=== PATIENT | female | born 1955 | race Caucasian/White ===

== ENCOUNTER → 2017-08-22 | Outpatient (CLI) | payer BC ==
[~2017-08-22] MED LIST: BUPIVACAINE MPF 0.5% 30 ML VIAL. ONE; LIDOCAINE 1% PF 30 ML VIAL. ONE
== END | disposition home or self-care (01) ==
LOC: SURG 15:31
PROVIDERS: ATTEND Anesthesiology Pain Medicine
DX: M47.812 Spondylosis without myelopathy or radiculopathy, cervical region (principal); J45.909 Unspecified asthma, uncomplicated; Z87.01 Personal history of pneumonia (recurrent); F17.210 Nicotine dependence, cigarettes, uncomplicated; Z72.89 Other problems related to lifestyle; M19.90 Unspecified osteoarthritis, unspecified site; Z91.041 Radiographic dye allergy status
CPT/HCPCS: 64490; 64491; 64492; J2001; J3490

== ENCOUNTER → 2019-09-26 | Outpatient (CLI) | payer BC ==
[~2019-09-26] MED LIST changes: -BUPIVACAINE MPF 0.5% 30 ML VIAL. ONE; +CARB200T PO; +ESCITALOPRAM OX20 MG PO; +ESTR2TAB PO; +HYDR-2765 PO; +IRBE150T21 PO; +LEVO125T5 PO; -LIDOCAINE 1% PF 30 ML VIAL. ONE; +MONT10TA80 PO; +OMEP40CA45 PO; +PLEC3TAB PO; +TOPI100T42 PO; +TRAZ-125 PO
== END | disposition home or self-care (01) ==
LOC: LAB 13:55
PROVIDERS: ATTEND Registered Nurse
DX: Z11.59 Encounter for screening for other viral diseases (principal)
CPT/HCPCS: C9803; U0003

== ENCOUNTER → 2019-09-30 | Day surgery (SDC) | payer BC ==
[~2019-09-30] MED LIST changes: +IPRATRPIUM/ALBUTEROL 0.5/2.5MG 3 ML NEBU. NEB PRN; +IV RINGERS SOLUTION,LACTATED 1,000 ML IV SCH; +PROPOFOL 10,000 MCG/ML (20ML) VIAL IV ONE
[2019-09-30 08:41] VITALS: BP 153/80
--- NOTE | 2019-10-01 14:09 | PATHOLOGY ---
[facility] Accession Number: [id number] . 01 Material submitted: . PART A: stomach - GASTRIC BX PART B: esophagus - DISTAL ESOPHAGUS. Modifiers: distal . 02 Diagnosis: A. Gastric biopsy: - Chronic gastritis, mild. . B. Esophageal biopsy, distal esophagus: - Segment of squamous esophageal mucosa showing no significant pathologic abnormalities. ([facility] 10/01/2019) [facility] 10/01/2019 0948 Local . 02 Comment: Sections of the gastric biopsy reveal gastric antral mucosa showing congestion and mild chronic inflammation. A properly controlled immunoperoxidase for Helicobacter is negative for Helicobacter organisms. . Sections of the distal esophageal biopsy reveal a segment of squamous esophageal mucosa showing no significant pathologic abnormalities. There is no evidence of Asher's change, dysplasia or malignancy. ([facility] 10/01/2019) . Special stain performed: Immunoperoxidase for Helicobacter on A1. . 02 Electronically signed: . Mychal Armstrong MD, Pathologist NPI- [id number] . 01 Gross description: . A. The specimen is received in formalin labeled "Sahil, Ana, gastric biopsy" and consists of a fragment of pink-blakely tissue measuring 0.4 x 0.2 x 0.2 cm which is entirely submitted in A1. . B. The specimen is received in formalin labeled "Sahil, Ana, distal esophagus" and consists of a fragment of white tissue measuring 0.3 x 0.2 x 0.1 cm which is entirely submitted in B1. ([facility]; 09/30/2019) JFQ/JFQ 09/30/2019 1914 Local . 02 Pathologist provided ICD-10: K29.50 . 02 CPT . 694156, 126632, M17735 Specimen Comment: A courtesy copy of this report has been sent to [phone], [phone] Specimen Comment: [id number] Specimen Comment: Report sent to / DR BASURTO Performed at: [address], [place] [id number] MD Abel Lopez MD Phone: [phone] Performed at: 02 [facility] [address] [place], [place] [id number] MD Mychal Armstrong MD Phone: [phone]
== END ==
LOC: SURG 07:09
PROVIDERS: ATTEND Emergency Medicine
DX: K21.0 Gastro-esophageal reflux disease with esophagitis (principal); K29.50 Unspecified chronic gastritis without bleeding; I10 Essential (primary) hypertension; J45.909 Unspecified asthma, uncomplicated; F41.9 Anxiety disorder, unspecified; Z90.49 Acquired absence of other specified parts of digestive tract; Z90.710 Acquired absence of both cervix and uterus; Z98.890 Other specified postprocedural states
CPT/HCPCS: 43239; 88305; 88342; J2704; J7120; 45380

== ENCOUNTER 2021-06-24 13:40 | Emergency (ER) | payer MEDICARE, BC ==
[~2021-06-24] VITALS: Ht 162.6 cm; Wt 90.0 kg
[~2021-06-24 13:40] MED LIST changes: -ESTR2TAB PO; +ESTR2TAB3 PO; -IPRATRPIUM/ALBUTEROL 0.5/2.5MG 3 ML NEBU. NEB PRN; -IV RINGERS SOLUTION,LACTATED 1,000 ML IV SCH; -OMEP40CA45 PO; +OMEP40CA7 PO; -PLEC3TAB PO; +PLEC3TAB2 PO; -PROPOFOL 10,000 MCG/ML (20ML) VIAL IV ONE
[2021-06-24] MEDS ORDERED: IV NORMAL SALINE 1,000ML 1,000 ML IV SCH (14:30)
--- NOTE | 2021-06-24 14:53 | RAD ---
Exam Date: 06/24/2021 2:[address] HEAD/BRAIN WO Indication: Reason: fall, / Spl. Instructions: / History: . TECHNIQUE: Head CT was performed without intravenous contrast. One or more of the following dose re duction techniques were utilized: *Automated exposure control (AEC) *Adjustment of mA and/or kV according to patient size *Use of iterative reconstruction technique *CT scan done according to ALARA, or ALARA/IMAGE GENTLY FINDINGS: The ventricles and sulci are prominent consistent with cerebral volume loss. Patchy ill-defined low attenuation areas in the subcortical and periventricular white matter bilaterally are consistent with microvascular disease. There is no evidence of acute intracranial hemorrhage, extra-axial collecti on, mass effect, midline shift, or acute territorial infarct. No lesion of the skull base or the calv arium is seen. The visualized paranasal sinuses, mastoid air cells and orbits are normal in appearanc e. IMPRESSION: No evidence for acute intracranial abnormality. Volume loss and microvascular disease. Electronically signed by: Jordi Epps MD (06/24/2021 2:50 PM) [facility]
[2021-06-24 15:10] LABS: BASO % 1 % (0-3); EOS # 0.2 x10^3/uL (0.0-0.7); EOS % 4 % (0-3); HEMATOCRIT 37.7 % (36.0-47.0); HEMOGLOBIN 12.4 g/dL (12.0-15.5); LYMPH # 1.2 x10^3/uL (1.0-4.8); LYMPH % 22 % (24-48); MEAN CORPUSCULAR HEMOGLOBIN 30 pg (25-35); MEAN CORPUSCULAR HGB CONC 33 g/dL (31-37); MEAN CORPUSCULAR VOLUME 91 fL (79-100); MONO # 0.7 x10^3/uL (0.0-1.1); MONO % 12 % (0-9); NEUT # 3.4 x10^3uL (1.8-7.7); NEUT % 61 % (31-73); PLATELET COUNT 287 x10^3/uL (140-400); RED BLOOD COUNT 4.14 x10^6/uL (3.50-5.40); RED CELL DISTRIBUTION WIDTH 14.9 % (11.5-14.5); WHITE BLOOD COUNT 5.5 x10^3/uL (4.0-11.0)
--- NOTE | 2021-06-24 15:20 | RAD ---
Exam Date: 06/24/2021 2:45 PM XR CHEST 1V Indication: Reason: weakness, tremnors / Spl. Instructions: / History: . Comparison: May 18, 2015 FINDINGS/ IMPRESSION: The cardiac silhouette and pulmonary vasculature are within normal limits. There is no focal consolidation, pleural effusion or pneumothorax. The visualized osseous structures are intact. Electronically signed by: Jordi Epps MD (06/24/2021 3:18 PM) [facility]
[2021-06-24 15:21] LABS: CALCIUM 8.6 mg/dL (8.5-10.1); CREATININE 0.8 mg/dL (0.6-1.0)
[2021-06-24 15:34] LABS: ALBUMIN/GLOBULIN RATIO 0.9 (1.0-1.7); MAGNESIUM 1.9 mg/dL (1.8-2.4); TOTAL BILIRUBIN 0.1 mg/dL (0.2-1.0); TOTAL PROTEIN 6.2 g/dL (6.4-8.2)
[2021-06-24 16:09] LABS: AMPHETAMINE/METHAMPHETAMINE NEG (NEG); BARBITURATES NEG (NEG); BENZODIAZEPINES NEG (NEG); CANNABINOIDS NEG (NEG); COCAINE NEG (NEG); METHADONE NEG (NEG); OPIATES POS (NEG); PHENCYCLIDINE NEG (NEG)
[2021-06-24 16:15] LABS: CLARITY,URINE HAZY; COLOR,URINE AMBER; GLUCOSE,URINE 100 mg/dL (NEG)
[2021-06-24 16:16] LABS: BACTERIA,URINE 0 /HPF (0-FEW); NITRITE,URINE NEG (NEG); RBC,URINE 0 /HPF (0-2); SQUAMOUS EPITHELIAL CELL,UR MOD /LPF; UROBILINOGEN,URINE 0.2 mg/dL (0.2 mg/dL); WBC,URINE 0 /HPF (0-4)
--- NOTE | 2021-06-24 16:39 | PHYS DOC ---
Past History Additional Past Medical Histor: epilepsy, back pain, Past Surgical History: Hysterectomy, Other Additional Past Surgical Histo: spinal stimulator Alcohol Use: None General Adult EDM: Chief Complaint: MECHANICAL FALL HPI: HPI: 66-year-old female past medical history of seizures, hypertension, benign essential tremors and hypothyroidism, presents to the ED with complaints of " my knees just gave out when I was walking." Reports she was unable to get up after falling and her could not lift her; I am alone. States she did land on her right side and hit the right side of her head but did not lose consciousness. Is not on any anticoagulants. Reports primary care physician started on Keflex 1 week ago for pneumonia. Recently discontinued her estrogen. Reports her tetanus is up-to-date. Denies any associated chest pain, shortness of breath hemoptysis, leg swelling, dizziness, oral, lightheadedness or any other presenting symptoms. Patient states "my knees just buckled, it was not a seizure." Follows with Dr. Mcnair for chronic bilateral knee pain and received steroid injections-states "I just need new knees." Review of Systems: Review of Systems: Constitutional: Denies fever or chills Eyes: Denies change in visual acuity HENT: Denies nasal congestion or sore throat Respiratory: Denies cough or shortness of breath Cardiovascular: Denies chest pain or edema GI: Denies abdominal pain, nausea, vomiting, bloody stools or diarrhea : Denies cyanoses or incontinence Musculoskeletal: Denies back pain or new joint pain Integument: Denies rash or diaphoresis Neurologic: Denies headache or neck pain Endocrine: Denies polyuria or polydipsia Lymphatic: Denies swollen glands Psychiatric: Denies depression or anxiety Current Medications: Current Meds: Current Medications Medications (Trade) Dose Ordered Sig/Ayleen Start Time Stop Time Status Last Admin Dose Admin Sodium Chloride 1,000 ml @ 1,000 mls/hr Q1H 06/24/21 14:30 06/24/21 15:29 DC 06/24/21 15:40 1,000 MLS/HR Allergies: Allergies: Allergies Coded Allergies Type Severity Reaction Last Updated Verified rizatriptan Allergy Unknown 09/30/19 Yes Uncoded Allergies Type Severity Reaction Last Updated Verified SURGICAL PREP Allergy Unknown 09/25/19 Physical Exam: PE: Constitutional: Well developed, well nourished, no acute distress, non-toxic appearance. HENT: Normocephalic, atraumatic, cannot appreciate any hematoma or skin break, slightly dry mucous membranes Eyes: Pupils equal and reactive, EOMI, conjunctiva normal, no discharge. Neck: Normal range of motion, supple, the patient presented to the emergency department with a c-collar in place, Nexus C-spine criteria are negative: There is no post midline tenderness, the patient is not intoxicated, there is a normal level of alertness, there are no focal neurologic deficits and there are no distracting injuries. Cardiovascular: S1/2 present, regular rhythm Lungs & Thorax: Speaking in full sentences, bilateral equal chest rise, no tachypnea or increased work of breathing Abdomen: soft, no tenderness, no hip tenderness, Skin: Warm, dry, no erythema, no rash. [] Back: No midline spinal step-offs or tenderness, no CVA tenderness. [] Extremities: No tenderness, no cyanosis, no unilateral, lower extremity edema, is able to raise both legs, very superficial abrasion to right anterior knee- normal range of motion of hips, knees and ankles, no pain at fibular heads, DP/PT pulses intact, L5/S1 sensation intact Neurologic: Alert and oriented X 3, normal motor function, normal sensory function, no focal deficits noted. [] Psychologic: Affect normal, judgement normal, mood normal. [] Current Patient Data: Labs: Laboratory Tests Test 06/24/21 14:56 06/24/21 15:36 White Blood Count 5.5 x10^3/uL (4.0-11.0) Red Blood Count 4.14 x10^6/uL (3.50-5.40) Hemoglobin 12.4 g/dL (12.0-15.5) Hematocrit 37.7 % (36.0-47.0) Mean Corpuscular Volume 91 fL (79-100) Mean Corpuscular Hemoglobin 30 pg (25-35) Mean Corpuscular Hemoglobin Concent 33 g/dL (31-37) Red Cell Distribution Width 14.9 % (11.5-14.5) H Platelet Count 287 x10^3/uL (140-400) Neutrophils (%) (Auto) 61 % (31-73) Lymphocytes (%) (Auto) 22 % (24-48) L Monocytes (%) (Auto) 12 % (0-9) H Eosinophils (%) (Auto) 4 % (0-3) H Basophils (%) (Auto) 1 % (0-3) Neutrophils # (Auto) 3.4 x10^3uL (1.8-7.7) Lymphocytes # (Auto) 1.2 x10^3/uL (1.0-4.8) Monocytes # (Auto) 0.7 x10^3/uL (0.0-1.1) Eosinophils # (Auto) 0.2 x10^3/uL (0.0-0.7) Basophils # (Auto) 0.0 x10^3/uL (0.0-0.2) Sodium Level 143 mmol/L (136-145) Potassium Level 4.0 mmol/L (3.5-5.1) Chloride Level 106 mmol/L (98-107) Carbon Dioxide Level 30 mmol/L (21-32) Anion Gap 7 (6-14) Blood Urea Nitrogen 19 mg/dL (7-20) Creatinine 0.8 mg/dL (0.6-1.0) Estimated GFR (Cockcroft-Gault) 72.0 BUN/Creatinine Ratio 24 (6-20) H Glucose Level 92 mg/dL (70-99) Calcium Level 8.6 mg/dL (8.5-10.1) Magnesium Level 1.9 mg/dL (1.8-2.4) Total Bilirubin 0.1 mg/dL (0.2-1.0) L Aspartate Amino Transferase (AST) 20 U/L (15-37) Alanine Aminotransferase (ALT) 20 U/L (14-59) Alkaline Phosphatase 134 U/L (46-116) H Creatine Kinase 65 U/L (26-192) Troponin I High Sensitivity 7 ng/L (4-50) LB-Ikv-V-Type Natriuretic Peptide 307 pg/mL (0-124) H Total Protein 6.2 g/dL (6.4-8.2) L Albumin 3.0 g/dL (3.4-5.0) L Albumin/Globulin Ratio 0.9 (1.0-1.7) L Lipase 45 U/L (73-393) L Urine Collection Type Clean catch Urine Color Ignacia Urine Clarity Hazy Urine pH 5.5 Urine Specific Farrell >=1.030 Urine Protein Neg (NEG-TRACE) Urine Glucose (UA) 100 mg/dL (NEG) Urine Ketones (Stick) Trace mg/dL (NEG) Urine Blood Neg (NEG) Urine Nitrite Neg (NEG) Urine Bilirubin Small (NEG) Urine Urobilinogen Dipstick 0.2 mg/dL (0.2 mg/dL) Urine Leukocyte Esterase Neg (NEG) Urine RBC 0 /HPF (0-2) Urine WBC 0 /HPF (0-4) Urine Squamous Epithelial Cells Mod /LPF Urine Bacteria 0 /HPF (0-FEW) Urine Opiates Screen Pos (NEG) Urine Methadone Screen Neg (NEG) Urine Barbiturates Neg (NEG) Urine Phencyclidine Screen Neg (NEG) Urine Amphetamine/Methamphetamine Neg (NEG) Urine Benzodiazepines Screen Neg (NEG) Urine Cocaine Screen Neg (NEG) Urine Cannabinoids Screen Neg (NEG) Urine Ethyl Alcohol Neg (NEG) Vital Signs: Vital Signs Date Time Temp Pulse Resp B/P (MAP) Pulse Ox O2 Delivery O2 Flow Rate FiO2 06/24/21 13:59 97.9 67 16 155/82 (106) 96 Room Air EKG: EKG: [] Radiology/Procedures: Radiology/Procedures: IMAGING REPORT Signed PATIENT: JOHANNA YUNG ACCOUNT: [id number] : 1955 LOCATION: ER AGE: 66 SEX: F EXAM STATUS: REG ER ORD. PHYSICIAN: SIERRA MELO DO REASON: fall, PROCEDURE: CT HEAD WO CONTRAST Exam Date: 06/24/2021 2:[address] HEAD/BRAIN WO Indication: Reason: fall, / Spl. Instructions: / History: . TECHNIQUE: Head CT was performed without intravenous contrast. One or more of the following dose reduction techniques were utilized: *Automated exposure control (AEC) *Adjustment of mA and/or kV according to patient size *Use of iterative reconstruction technique *CT scan done according to ALARA, or EVERETTERA/IMAGE GENTLY FINDINGS: The ventricles and sulci are prominent consistent with cerebral volume loss. Patchy ill-defined low attenuation areas in the subcortical and periventricular white matter bilaterally are consistent with microvascular disease. There is no evidence of acute intracranial hemorrhage, extra-axial collection, mass effect, midline shift, or acute territorial infarct. No lesion of the skull base or the calvarium is seen. The visualized paranasal sinuses, mastoid air cells and orbits are normal in appearance. IMPRESSION: No evidence for acute intracranial abnormality. Volume loss and microvascular disease. Electronically signed by: Rocio Epps MD (06/24/2021 2:50 PM) [facility] DICTATED AND SIGNED BY: ROCIO EPPS MD DATE: 06/24/21 1447 CC: SIERRA BASURTO; SIERRA MELO DO ~MTH0 0 IMAGING REPORT Signed PATIENT: JOHANNA YUNG ACCOUNT: [id number] : 1955 LOCATION: ER AGE: 66 SEX: F EXAM STATUS: REG ER ORD. PHYSICIAN: SIERRA MELO DO REASON: weakness, tremnors PROCEDURE: PORTABLE CHEST 1V Exam Date: 06/24/2021 2:45 PM XR CHEST 1V Indication: Reason: weakness, tremnors / Spl. Instructions: / History: . Comparison: May 18, 2015 FINDINGS/ IMPRESSION: The cardiac silhouette and pulmonary vasculature are within normal limits. There is no focal consolidation, pleural effusion or pneumothorax. The visualized osseous structures are intact. Electronically signed by: Rocio Epps MD (06/24/2021 3:18 PM) [facility] DICTATED AND SIGNED BY: ROCIO EPPS MD DATE: 06/24/21 1517 CC: SIERRA BASURTO; SIERRA MELO DO ~MTH0 0 Heart Score: C/O Chest Pain: No Risk Factors: Risk Factors: DM, Current or recent (<one month) smoker, HTN, HLP, family history of CAD, obesity. Risk Scores: Score 0 - 3: 2.5% MACE over next 6 weeks - Discharge Home Score 4 - 6: 20.3% MACE over next 6 weeks - Admit for Clinical Observation Score 7 - 10: 72.7% MACE over next 6 weeks - Early Invasive Strategies Course & Med Decision Making: Course & Med Decision Making Pertinent Labs and Imaging studies reviewed. (See chart for details) Concern for accidental mechanical fall in an afebrile, slightly dehydrated F with mild ketonuria on urinalysis. Patient also has a benign essential tremors which I think could complicate this. Patient does not ambulate with any canes or walkers. Basic labs unremarkable with no evidence of ischemia on EKG, negative troponin. CT imaging of the head with no traumatic injury. Chest x- ray with no worsening pneumonia. Urinalysis with no UTI. Patient able to ambulate in emergency department. Reports knee pain is chronic and not acute- has no focal back pain and has orthopedic surgeon to follow-up with. I encouraged oral hydration. Will discharge home with strict ED return precautions were given for repeat head injury, fever, joint deformity or confusion. Encouraged urgent outpatient follow-up with PMD for routine care and with PCP as needed for quadrant pain. Life-threatening processes were considered but are low suspicion at this time, given history, physical exam and ED workup. Pt was educated on all prescription medications and adverse effects. All patient's questions were answered and pt was stable at time of discharge. Life/limb-threatening differential includes but is not limited to, intracranial hemorrhage, diffuse axonal injury, spinal cord syndrome, unstable cervical fracture or SCIWORA, fractures or joint dislocations, neurovascular injuries, organ injury or laceration, pneumothorax, pneumoperitoneum, pericardial tamponade, unstable pelvic fracture, compartment syndrome, flail chest or respiratory distress, burn injury or asphyxiation I have spoken with the patient and/or caregivers. I explained the patient's condition, diagnoses and treatment plan based on the information available to me at this time. I have answered the patient and/or caregiver's questions and addressed any concerns. The patient and/or caregivers have a good understanding of patient's diagnosis, condition and treatment plan as can be expected at this point. Vital signs have been stable. Patient's condition is stable and appropriate for discharge from the emergency department. Patient will pursue further outpatient evaluation with primary care physician or other designated or consulting physician as outlined in the discharge instructions. The patient and/or caregivers are agreeable to this plan of care and follow-up instructions have been explained in detail. The patient and/or caregivers have received these instructions in written form and have expressed an understanding of the discharge instructions. The patient and/or caregivers are aware that any significant change of condition or worsening of symptoms should prompt immediate return to this or the closest emergency department or call to 911. Inder Disclaimer: Inder Disclaimer: This electronic medical record was generated, in whole or in part, using a voice recognition dictation system. Departure Departure: Impression: Primary Impression: Weakness Additional Impressions: Fall Ketonuria Disposition: 01 HOME / SELF CARE / HOMELESS Condition: STABLE Referrals: CHIO CHAHAL MD (PCP) Follow-up with your primary care physician in the next few days for reevaluation. Return to ED if you develop any passing out, repeat head injury, severe headache, nausea or vomiting, or confusion. Patient Instructions: Dehydration, Adult, Fall Prevention and Home Safety, Weakness Additional Instructions: FOLLOW UP WITH ORTHOPEDICS: FOR DEFINITIVE MANAGEMENT of chronic joint pain Orthopaedic Surgery [address] [facility] [place] [address] EMERGENCY DEPARTMENT GENERAL DISCHARGE INSTRUCTIONS Thank you for coming to [facility] (ED) today and trusting us with you care. We trust that you had a positivie experience in our Emergency Department. If you wish to speak to the department management, you may call the director at [phone]. YOUR FOLLOW UP INSTRUCTIONS ARE FOLLOWS: 1. Do you have a private Doctor? If you do not have a private doctor, please ask for a resource list of physicians or clinics that may be able to assist you with follow up care. 2. The Emergency Physician has interpreted your x-rays. The X-Ray specialist will also review them. If there is a change in the findings, you will be notified in 48 hours when at all possible. 3. A lab test or culture has been done, your results will be reviewed and you will be notified if you need a change in treatment. ADDITIONAL INSTRUCTIONS AND INFORMATION: 1. Your care today has been supervised by a physician who is specially trained in emergency care. Many problems require more than one evaluation for a complete diagnosis and treatment. We recommend that you schedule your follow up appointment as recommended to ensure complete treatment of you illness or injury. If you are unable to obtain follow up care and continue to have a problem, or if your condition worsens, we recommend that you return to the ED. 2. We are not able to safely determine your condition over the phone nor are we able to give sound medical advice over the phone. For these safety reasons, if you call for medical advice we will ask you to come to the ED for further evaluation. 3. If you have any questions regarding these discharge instructions please call the ED at [phone]. SAFETY INFORMATION: In the interest of safety, wellness, and injury prevention; we encourage you to wear your sealbelt, if you smoke; quite smoking, and we encourage family to use a protective helmet for bicycling and other sporting events that present an increased risk for head injury. IF YOUR SYMPTOMS WORSEN OR NEW SYMPTOMS DEVELOP, OR YOU HAVE CONCERNS ABOUT YOUR CONDITION; OR IF YOUR CONDITION WORSENS WHILE YOU ARE WAITING FOR YOUR FOLLOW UP APPOINTMENT; EITHER CONTACT YOUR PRIMARY CARE DOCTOR, THE PHYSICIAN WHOSE NAME AND NUMBER YOU WERE GIVEN, OR RETURN TO THE ED IMMEDIATELY. [facility] DO Jun 24, 2021 16:39
[2021-06-24 17:15] VITALS: BP 158/81
--- NOTE | 2021-06-24 17:19 | EKG ---
[address] [address] Test Date: 2021-06-24 Test Time: 15:03:42 Pat Name: JOHANNA YUNG Department: Room: Gender: F Bench Scientist: : 1955 Requested By: SIERRA MELO Order Number: [id number] Reading MD: Fernando Chao Measurements Intervals Jermyn Rate: 58 P: 42 NM: 238 QRS: -15 QRSD: 94 T: 7 QT: 420 QTc: 416 Interpretive Statements SINUS RHYTHM PROLONGED NM INTERVAL Electronically Signed On 06-26-2021 18:01:05 VOIP NETWORK TECHNICIAN by Fernando Chao
== END 2021-06-24 18:26 | disposition home or self-care (01) ==
LOC: ER 13:40
DX: S80.211A Abrasion, right knee, initial encounter (principal); R53.1 Weakness; R82.4 Acetonuria; I10 Essential (primary) hypertension; G40.909 Epilepsy, unspecified, not intractable, without status epilepticus; E03.9 Hypothyroidism, unspecified; G89.29 Other chronic pain; Z88.8 Allergy status to other drugs, medicaments and biological substances; W18.39XA Other fall on same level, initial encounter; Y93.01 Activity, walking, marching and hiking; Y92.89 Other specified places as the place of occurrence of the external cause; Y99.8 Other external cause status
CPT/HCPCS: 36415; 70450; 71045; 80053; 80307; 81001; 82550; 83690; 83735; 83880; 84484; 85025; 93005; 96360; 99285; J7030

== ENCOUNTER 2021-08-11 10:12 | Emergency (ER) | payer MEDICARE, BC ==
[~2021-08-11] VITALS: Ht 162.6 cm; Wt 90.0 kg
[2021-08-11] MEDS ORDERED: KETOROLAC 30 MG/ML VIAL. IM ONE (11:00)
[2021-08-11] MEDS ORDERED: ORPHENADRINE CITRATE 60 MG/2 ML VIAL. IM ONE (11:00)
--- NOTE | 2021-08-11 11:04 | PHYS DOC ---
Past History Past Medical History: Seizure Additional Past Medical Histor: back pain Past Surgical History: Hysterectomy, Other Additional Past Surgical Histo: spinal stimulator, pain pump Alcohol Use: None General Adult EDM: Chief Complaint: HAND PROBLEM HPI: HPI: Patient is a 66 year old female who experiences chronic pain who presents with bilateral shoulder and upper extremity pain status post fall 2 weeks ago. She was evaluated at that time and medically cleared without any acute bony injuries. Patient also had x-rays performed of her shoulders at a separate date, which revealed severe arthritis. She presents today for evaluation of the pain extending from her bilateral shoulders down to her hands, worse than the left. She denies any new trauma or injury, paresthesias, focal weakness. Patient has a spinal stimulator as well as a pain pump, of which medication she is unsure. Patient has no other complaints at this time. Review of Systems: Review of Systems: Constitutional: Denies fever, chills or generalized weakness Eyes: Denies change in visual acuity, visual field deficits or discharge HENT: Denies ear pain, nasal congestion or sore throat Respiratory: Denies cough or shortness of breath Cardiovascular: Denies chest pain, palpitations or edema GI: Denies abdominal pain, nausea, vomiting, bloody stools or diarrhea : Denies dysuria or hematuria Musculoskeletal: See HPI Integument: Denies rash or other skin lesion Neurologic: Denies headache, focal weakness or sensory changes Current Medications: Current Meds: Current Medications Medications (Trade) Dose Ordered Sig/Ayleen Start Time Stop Time Status Last Admin Dose Admin Ketorolac Tromethamine (Toradol 30mg Vial) 30 mg 1X ONCE 08/11/21 11:00 08/11/21 11:01 UNV Allergies: Allergies: Allergies Coded Allergies Type Severity Reaction Last Updated Verified rizatriptan Allergy Unknown 09/30/19 Yes Uncoded Allergies Type Severity Reaction Last Updated Verified SURGICAL PREP Allergy Unknown 09/25/19 Physical Exam: PE: Constitutional: Well developed, well nourished, no acute distress, non-toxic appearance. HENT: Normocephalic, atraumatic, bilateral external ears normal, nose normal. Eyes: EOMI, conjunctiva normal, no discharge. Neck: Normal range of motion, no stridor. Skin: Warm, dry, no erythema, no rash. Back: No midline tenderness, no paraspinal tenderness. Extremities: No tenderness, no cyanosis, no clubbing, no edema, no obvious deformity. Active and passive ROM intactshoulder abduction/adduction/flexion/extension/internal rotation/external rotation, elbow flexion/extension, wrist circumduction. Neurologic: Alert and oriented x4, normal motor function, normal sensory function, no focal deficits noted. Current Patient Data: Vital Signs: Vital Signs Date Time Temp Pulse Resp B/P (MAP) Pulse Ox O2 Delivery O2 Flow Rate FiO2 08/11/21 11:35 68 16 129/93 (105) 98 08/11/21 10:29 98.4 64 16 139/97 (111) 98 Room Air Heart Score: C/O Chest Pain: No Course & Med Decision Making: Course & Med Decision Making Pertinent Labs and Imaging studies reviewed. (See chart for details) Patient is a 66-year-old female who presents with bilateral upper extremity pain that she reports began status post fall about 2 weeks ago. She has been evaluated multiple times since her initial injury without any acute findings. Today, she is seeking x-rays of her hands to evaluate for pain that may be related to carpal tunnel syndrome. Discussed with the patient that x-ray films are limited in evaluation, and can really only assess bony injury and sometimes soft tissue swelling. Patient understands that in order to obtain the kind of information and work-up that she seeks, she will need to see orthopedist and/or bioinformatics computer scientist. After her treatments here in the department, patient is comfortable following up with her primary care doctor for further evaluation and management. She does request prescription for something at home until she is able to see her doctor. I am amenable to this, and so sent norflex to her chosen pharmacy. Patient questions were answered. Return precautions were provided. Patient understands and is agreeable to discharge plan. Dragon Disclaimer: Dragon Disclaimer: This electronic medical record was generated, in whole or in part, using a voice recognition dictation system. Departure Departure: Impression: Primary Impression: Pain in both upper extremities Additional Impressions: Chronic back pain Qualified Codes: M54.9 - Dorsalgia, unspecified; G89.29 - Other chronic pain Elevated blood pressure reading Disposition: HOME / SELF CARE / HOMELESS Condition: IMPROVED Referrals: WELLINGTON ADKINS (PCP) TIFFANIE SANTOS Jr. DO Patient Instructions: Shoulder Exercises, Generic, SportsMed, Shoulder Pain, [id number]-[id number], Wrist Pain, Uwxc-vi-Pans Additional Instructions: Saman Kwok MD - Rheumatology [address], [address] [address] EMERGENCY DEPARTMENT GENERAL DISCHARGE INSTRUCTIONS Thank you for coming to [facility] (ED) today and trusting us with you care. We trust that you had a positive experience in our Emergency Department. If you wish to speak to the department management, you may call the director at [phone]. YOUR FOLLOW UP INSTRUCTIONS ARE FOLLOWS: 1. Follow up with your primary care doctor. Keep a blood pressure log for your next visit. If you do not have a primary doctor, please ask for a resource list of physicians or clinics that may be able to assist you with follow up care. 2. The emergency provider has interpreted your imaging studies, if any were ord ered. The radiology community service specialist also reviewed them. If there is a change in the findings, you will be notified in 48 hours when at all possible. 3. If a lab test or culture has been done, your results will be reviewed and you will be notified if you need a change in treatment. 4. Follow instructions verbalized to you and refer to the printouts if needed. ADDITIONAL INSTRUCTIONS AND INFORMATION: 1. Your care today has been supervised by a physician who is specially trained in emergency care. Many problems require more than one evaluation for a complete diagnosis and treatment. We recommend that you schedule your follow up appointment as recommended to ensure complete treatment of you illness or injury. If you are unable to obtain follow up care and continue to have a problem, or if your condition worsens, we recommend that you return to the ED. 2. We are not able to safely determine your condition over the phone nor are we able to give sound medical advice over the phone. For these safety reasons, if you call for medical advice we will ask you to come to the ED for further evaluation. 3. If you have any questions regarding these discharge instructions please call the ED at [phone]. SAFETY INFORMATION: In the interest of safety, wellness, and injury prevention; we encourage you to wear your seat belt, if you smoke; quite smoking, and we encourage family to use a protective helmet for bicycling and other sporting events that present an increased risk for head injury. IF YOUR SYMPTOMS WORSEN OR NEW SYMPTOMS DEVELOP, OR YOU HAVE CONCERNS ABOUT YOUR CONDITION; OR IF YOUR CONDITION WORSENS WHILE YOU ARE WAITING FOR YOUR FOLLOW UP APPOINTMENT; EITHER CONTACT YOUR PRIMARY CARE DOCTOR, THE PHYSICIAN WHOSE NAME AND NUMBER YOU WERE GIVEN, OR RETURN TO THE ED IMMEDIATELY. Scripts Orphenadrine Citrate (ORPHENADRINE CITRATE) 100 Mg Tablet.er 0.5 TAB PO BID for muscle pain, #10 TAB 0 Refills Prov: ROBERTO BELTRE 08/11/21 ROBERTO BELTRE Aug 11, 2021 11:04
[2021-08-11] MEDS ORDERED: ORPH-16 PO (11:23)
[2021-08-11 11:35] VITALS: BP 129/93
== END 2021-08-11 11:35 | disposition home or self-care (01) ==
LOC: ER 10:12
DX: M79.602 Pain in left arm (principal); M79.601 Pain in right arm; G89.29 Other chronic pain; M54.89 Other dorsalgia; R03.0 Elevated blood-pressure reading, without diagnosis of hypertension; Z88.8 Allergy status to other drugs, medicaments and biological substances
CPT/HCPCS: 96372; 99284; J1885; J2360

== ENCOUNTER 2021-08-17 23:53 | Emergency (ER) | payer MEDICARE, BC ==
[~2021-08-17] VITALS: Ht 162.6 cm; Wt 89.6 kg
[~2021-08-17 23:53] MED LIST changes: +ORPH-16 PO
--- NOTE | 2021-08-18 00:12 | PHYS DOC ---
Past History Past Medical History: Seizure Additional Past Medical Histor: back pain Past Surgical History: Hysterectomy, Other Additional Past Surgical Histo: spinal stimulator, pain pump Alcohol Use: None Adult General Chief Complaint Chief Complaint: SHORTNESS OF BREATH HPI HPI Patient is a 66-year-old female with a past medical history of asthma and some degree of COPD and cigarette smoking who presents with a couple of days of dry cough, shortness of breath and wheeze. States she has been using her albuterol and Symbicort at home which usually takes care of it but is getting minimal relief from at this time. Denies any recent travels, traumas, illnesses, fevers, rash, chest pain, abdominal pain, nausea, vomiting, diarrhea. Denies any numbness/weakness/tingling or trouble walking. States she is able to eat and drink normally. States he is making urine and stool normally for her. Review of Systems Review of Systems Review of systems otherwise unremarkable except noted in HPI Allergies Allergies Allergies Coded Allergies Type Severity Reaction Last Updated Verified Iodinated Contrast Media Allergy Unknown 08/17/21 Yes rizatriptan Allergy Unknown 08/17/21 Yes Uncoded Allergies Type Severity Reaction Last Updated Verified SURGICAL PREP Allergy Unknown 09/25/19 Physical Exam Physical Exam Constitutional: Well developed, well nourished, no acute distress, non-toxic appearance. [] HENT: Normocephalic, atraumatic, bilateral external ears normal, oropharynx moist, no oral exudates, nose normal. [] Eyes: PERRLA, EOMI, conjunctiva normal, no discharge. [] Neck: Normal range of motion, no tenderness, supple, no stridor. [] Cardiovascular:Heart rate regular rhythm, no murmur [] Lungs & Thorax: Mild bilateral upper respiratory congestion and end expiratory wheeze with mild nasal congestion Abdomen: no tenderness, no masses, no pulsatile masses. [] Skin: Warm, dry, no erythema, no rash. [] Back: No tenderness, no CVA tenderness. [] Extremities: No tenderness, no cyanosis, no clubbing, ROM intact, no edema. [] Neurologic: Alert and oriented X 3, normal motor function, normal sensory function, no focal deficits noted. [] Psychologic: Affect normal, judgement normal, mood normal. [] Current Patient Data Vital Signs Vital Signs Date Time Temp Pulse Resp B/P (MAP) Pulse Ox O2 Delivery O2 Flow Rate FiO2 08/18/21 00:00 98.2 24 172/76 (108) Room Air EKG EKG [] Radiology/Procedures Radiology/Procedures [] Heart Score C/O Chest Pain: No Risk Factors: Risk Factors: DM, Current or recent (<one month) smoker, HTN, HLP, family history of CAD, obesity. Risk Scores: Risk Factors: DM, Current or recent (<one month) smoker, HTN, HLP, family history of CAD, obesity. Course & Med Decision Making Course & Med Decision Making Patient is a 66-year-old female with asthma who presents with complaints of wheezing and asthma exacerbation Vital signs notable for hypertension and tachypnea. Physical exam noted above. Placed on monitor with IV access established EKG with a rate of 61, QRS of 84, QTc of 428, no STEMI. Chest x-ray with possible consolidation left lower lobe. Started on antibiotics in the ED.. Giv en DuoNeb and steroids. Laboratory analysis not concerning. On reassessment patient feeling better and ready to go home Discussed all findings with patient. Advised on symptom treatment for asthma at home. Advised to follow-up this morning with primary care physician Gave return precautions to the ED. Patient grateful, verbalized understanding and agreed with plan of discharge [] Dragon Disclaimer Dragon Disclaimer This electronic medical record was generated, in whole or in part, using a voice recognition dictation system. Departure Departure: Impression: Primary Impression: Asthma exacerbation Additional Impression: Cough Disposition: HOME / SELF CARE / HOMELESS Condition: STABLE Referrals: WELLINGTON ADKINS (PCP) Patient Instructions: Asthma Attacks, Prevention, Asthma, Adult, Pneumonia, Adult Additional Instructions: Thank for coming into the emergency department tonight and allowing us to take care of you. Please read the attached information carefully to go over things we discussed. Please use your asthma medications at home as prescribed and as needed. Please stay well-hydrated. Please take antibiotics as prescribed and until gone. Please follow-up first thing in the morning with your primary care physician update on your ED visit and set up a follow-up as soon as you can. Please come back with new or concerning symptoms as discussed. Scripts Levofloxacin (LEVOFLOXACIN) 500 Mg Tablet 1 TAB PO DAILY for PNA for 6 Days, #6 TAB Prov: ROGELIO CALVERT MD 08/18/21 Problem QualROGELIO Almazan MD Aug 18, 2021 00:12
--- NOTE | 2021-08-18 00:22 | EKG ---
[address] [address] Test Date: 2021-08-18 Test Time: 00:11:52 Pat Name: JOHANNA YUNG Department: Room: Gender: F Book Illustrator: MALICK : [id number] Requested By: ROGELIO CALVERT Order Number: [id number] Reading MD: Measurements Intervals [place] Rate: 61 P: 33 IN: 234 QRS: -12 QRSD: 84 T: 10 QT: 424 QTc: 428 Interpretive Statements SINUS RHYTHM PROLONGED IN INTERVAL LEFTWARD AXIS QRS(T) CONTOUR ABNORMALITY CONSIDER ANTEROLATERAL MYOCARDIAL DAMAGE ABNORMAL ECG RI6.01 No previous ECG available for comparison
[2021-08-18] MEDS: IPRATRPIUM/ALBUTEROL 0.5/2.5MG 3 ML NEBU. NEB ONE (00:30)
[2021-08-18] MEDS: DEXAMETHASONE 4 MG TABLET PO ONE (00:33)
[2021-08-18 00:44] LABS: BASO # 0.1 x10^3/uL (0.0-0.2); BASO % 1 % (0-3); EOS # 0.4 x10^3/uL (0.0-0.7); EOS % 7 % (0-3); HEMATOCRIT 35.7 % (36.0-47.0); HEMOGLOBIN 11.7 g/dL (12.0-15.5); LYMPH # 1.8 x10^3/uL (1.0-4.8); LYMPH % 36 % (24-48); MEAN CORPUSCULAR HEMOGLOBIN 29 pg (25-35); MEAN CORPUSCULAR HGB CONC 33 g/dL (31-37); MEAN CORPUSCULAR VOLUME 89 fL (79-100); MONO # 0.5 x10^3/uL (0.0-1.1); MONO % 9 % (0-9); NEUT # 2.4 x10^3uL (1.8-7.7); NEUT % 47 % (31-73); PLATELET COUNT 298 x10^3/uL (140-400); RED BLOOD COUNT 4.03 x10^6/uL (3.50-5.40); RED CELL DISTRIBUTION WIDTH 13.4 % (11.5-14.5); WHITE BLOOD COUNT 5.1 x10^3/uL (4.0-11.0)
[2021-08-18 00:51] LABS: CALCIUM 8.6 mg/dL (8.5-10.1); CREATININE 0.7 mg/dL (0.6-1.0); MAGNESIUM 1.8 mg/dL (1.8-2.4); POTASSIUM 3.9 mmol/L (3.5-5.1)
[2021-08-18] MEDS ORDERED: LEVO500T9 PO (01:46)
[2021-08-18] MEDS: MIDAZOLAM HCL PF 5 MG/5 ML VIAL. IV ONE (01:57)
[2021-08-18] MEDS: levoFLOXacin 500 MG TABLET PO ONE (01:57)
[2021-08-18 02:41] VITALS: BP 149/75
--- NOTE | 2021-08-18 03:04 | RAD ---
AP chest x-ray HISTORY: Shortness of breath. COMPARISON: Chest x-ray June 24, 2021 FINDINGS: Thin caliber metallic densities at the upper abdomen stable to the prior study. The cardiac and mediastinal silhouette is normal. No pneumothorax, pulmonary opacities or pleural effusions. The bones are unremarkable. IMPRESSION: No acute process. Electronically signed by: Horace Paez MD (08/18/2021 3:01 AM) [facility]
== END 2021-08-18 02:37 | disposition home or self-care (01) ==
LOC: ER 23:53
DX: J45.901 Unspecified asthma with (acute) exacerbation (principal); Z91.041 Radiographic dye allergy status; Z88.8 Allergy status to other drugs, medicaments and biological substances
CPT/HCPCS: 36415; 71045; 80048; 83735; 84484; 85025; 93005; 94640; 96374; 99285; J2250; J8540